=== PATIENT | female | born 1985 | race Asian ===

== ENCOUNTER 2020-07-22 08:35 | Outpatient (CLI) | payer OTHER ==
[~2020-07-22] VITALS: Ht 162.6 cm; Wt 72.7 kg
[~2020-07-22 08:35] MED LIST: ACET325C6 PO; DEXA4TAB66 PO
[2020-07-22 09:12] VITALS: BP 111/61
[2020-07-22 09:19] LABS: MICROSCOPIC INDICATED
[2020-07-22 09:27] VITALS: BP 115/64
== END 2020-07-22 10:55 | disposition home or self-care (01) ==
LOC: LDOP 08:35
PROVIDERS: ATTEND Obstetrics & Gynecology
DX: O26.893 Other specified pregnancy related conditions, third trimester (principal); R10.9 Unspecified abdominal pain; Z3A.36 36 weeks gestation of pregnancy
CPT/HCPCS: 59025; 81001; 87086

== ENCOUNTER 2020-07-22 10:59 | Emergency (ER) | payer OTHER ==
[~2020-07-22] VITALS: Ht 162.6 cm; Wt 73.0 kg
[2020-07-22 11:08] VITALS: BP 124/61
--- NOTE | 2020-07-22 11:21 | NUR ---
PT TO XRAY
[2020-07-22 11:43] LABS: BASOPHILS % (AUTO) 0 % (0-1); EOSINOPHILS % (AUTO) 0 % (1-7); LYMPHOCYTES % (AUTO) 14 % (22-44); MEAN CORPUSCULAR HEMOGLOBIN 31.1 pg (27.0-34.8); MEAN CORPUSCULAR HGB CONC 34.2 g/dL (32.4-35.8); MEAN PLATELET VOLUME 9.2 fL (7.4-10.4); MONOCYTES % (AUTO) 5 % (2-9); NEUTROPHILS % (AUTO) 82 % (42-75); PLATELET COUNT 210 x10^3/uL (130-400); RED BLOOD COUNT 4.16 x10^6/uL (3.82-5.3); RED CELL DISTRIBUTION WIDTH 13.2 % (9.6-15.2)
[2020-07-22 11:52] LABS: ALANINE AMINOTRANSFERASE 39 U/L (12-78); ALBUMIN 2.8 g/dL (3.4-5.0); ANION GAP 10 mmol/L (5-15); CALCIUM 9.3 mg/dL (8.5-10.1); CHLORIDE 108 mmol/L (98-107); CREATININE 0.53 mg/dL (0.55-1.02)
[2020-07-22 11:54] LABS: ALKALINE PHOSPHATASE 196 U/L (45-117); BILIRUBIN,TOTAL 0.8 mg/dL (0.2-1.0); TOTAL PROTEIN 7.4 g/dL (6.4-8.2)
[2020-07-22 12:06] LABS: MD SCAN
--- NOTE | 2020-07-22 12:08 | NUR ---
REPORT RECEIVED FROM ELIJAH CID FOR TRANSFER OF PATIENT CARE.
--- NOTE | 2020-07-22 12:09 | NUR ---
REPORT TO ELKE, TRANSFER OF CARE AT THIS TIME.
--- NOTE | 2020-07-22 12:23 | NUR ---
Patient given discharge instructions and prescription and they have confirmed that they understand the instructions, all questions answered. All patient belongings gathered and taken with patient. Patient wheeled in stable condition from ED by ED staff.
== END 2020-07-22 12:23 | disposition home or self-care (01) ==
LOC: ED 12:09
DX: O26.893 Other specified pregnancy related conditions, third trimester (principal); J18.0 Bronchopneumonia, unspecified organism; R07.89 Other chest pain; R05 Cough; R09.81 Nasal congestion; M79.10 Myalgia, unspecified site; R06.02 Shortness of breath; Z3A.36 36 weeks gestation of pregnancy
CPT/HCPCS: 36415; 71046; 80053; 85025; 99284